=== PATIENT | female | born 1980 | race Caucasian/White ===

== ENCOUNTER 2017-04-17 18:40 | Emergency (ER) | payer OTHER ==
[2017-04-17 23:57] LABS: Hematocrit 41 % (35-47); Mean Corpuscular HGB Conc 34 g/dl (31-36); Mean Corpuscular Hemoglobin 30 pg (27-31); Mean Corpuscular Volume 87 fL (80-97); Mean Platelet Volume 8 um3 (7.4-10.4); Red Cell Distribution Width 12 % (10.5-15); White Blood Count 12.3 10^3/ul (3.5-10.8)
[2017-04-18 00:16] LABS: Albumin 3.9 g/dL (3.2-5.2); BUN/Creatinine Ratio 11.5 (8-20); Calcium 8.8 mg/dL (8.6-10.3); EGFR African American 107.5 (>60); EGFR Non-African American 83.6 (>60); Globulin 3.3 g/dL (2-4); Total Bilirubin 0.6 mg/dL (0.2-1.0); Total Protein 7.2 g/dL (6.4-8.9)
[2017-04-18] MEDS ORDERED: Morphine INJ* 4 MG/ML 1 ML SYRINGE IV ONE (00:19)
[2017-04-18] MEDS ORDERED: Ondansetron INJ* 2 MG/ML VIAL IV ONE (00:20)
[2017-04-18] MEDS ORDERED: NS 0.9% 1000 ML* 1,000 ML IV ONE (00:20)
[2017-04-18] MEDS ORDERED: Iohexol 300* (CONTRAST) 10 ML SDV IV ONE (01:03)
--- NOTE | 2017-04-18 03:21 | ED ---
Abdominal Pain/Female - HPI Summary HPI Summary: 36F presents with abdominal pain today. She has history of colitis. She sees a GI specialists who has her on antidepressants and she hasn't had a flare up for 2 years. She admits to nausea. denies any v/d/c, dysuria, hematuria, flank pain. has had gallbladder removed. states feels the same as colitis in past. not dx of crohns or UC. no one else sick. not taken anything for pain. did not eat anything different. she states most times she is hospitalized but feels that she caught it early this time. - History of Current Complaint Chief Complaint: EDAbdPain Stated Complaint: ABD PAIN Time Seen by Provider: 04/17/17 23:25 Pain Intensity: 6 Allergies/Adverse Reactions: Allergies Allergy/AdvReac Type Severity Reaction Status Date / Time Metronidazole [From Flagyl] Allergy Headache Verified 04/17/17 23:50 PMH/Surg Hx/FS Hx/Imm Hx Endocrine/Hematology History: Denies: Hx Diabetes Cardiovascular History: Denies: Hx Hypertension History: Denies: Hx Renal Disease - Surgical History Surgery Procedure, Year, and Place: CHOLECYSTECTOMY, APPENDECTOMY, 1 Infectious Disease History: No Infectious Disease History: Denies: Traveled Outside the [place] in Last 30 Days - Family History Known Family History: Positive: Hypertension - Social History Alcohol Use: Rare Substance Use Type: Reports: None Smoking Status (MU): Former Smoker Review of Systems Negative: Fever Negative: Chest Pain Negative: Shortness Of Breath Positive: Abdominal Pain, Nausea. Negative: Vomiting, Diarrhea All Other Systems Reviewed And Are Negative: Yes Physical Exam Triage Information Reviewed: Yes Vital Signs On Initial Exam: Initial Vitals Temp Pulse Resp BP Pulse Ox 99.2 F 87 20 129/83 100 04/17/17 18:50 04/17/17 18:50 04/17/17 18:50 04/17/17 18:50 04/17/17 18:50 Vital Signs Reviewed: Yes Appearance: Positive: Well-Appearing Skin: Positive: Warm, Dry Head/Face: Positive: Normal Head/Face Inspection Eyes: Positive: Normal, EOMI, [place], Conjunctiva Clear ENT: Positive: Normal ENT inspection, Pharynx normal, TMs normal Respiratory/Lung Sounds: Positive: Clear to Auscultation, Breath Sounds Present Cardiovascular: Positive: Normal, RRR Abdomen Description: Positive: Soft, Other: - tenderness in upper quadrants, no rebound Bowel Sounds: Positive: Present - [place] Coma Scale Coma Scale Total: 15 Diagnostics - Vital Signs Vital Signs Temp Pulse Resp BP Pulse Ox 04/18/17 01:09 98.2 F 71 17 123/67 100 04/18/17 00:29 16 04/17/17 22:44 98.1 F 83 16 132/80 99 04/17/17 21:00 98.8 F 81 16 119/65 99 04/17/17 18:50 99.2 F 87 20 129/83 100 - Laboratory Lab Results: Lab Results 04/17/17 04/17/17 Range/Units 23:45 23:45 WBC 12.3 H (3.5-10.8) 10^3/ul RBC 4.70 (4.0-5.4) 10^6/ul Hgb 14.0 (12.0-16.0) g/dl Hct 41 (35-47) % MCV 87 (80-97) fL MCH 30 (27-31) pg MCHC 34 (31-36) g/dl RDW 12 (10.5-15) % Plt Count 241 (150-450) 10^3/ul MPV 8 (7.4-10.4) um3 Neut % (Auto) 73.6 (38-83) % Lymph % (Auto) 15.3 L (25-47) % [place] % (Auto) 7.4 (1-9) % Eos % (Auto) 3.0 (0-6) % Baso % (Auto) 0.7 (0-2) % Absolute Neuts (auto) 9.1 H (1.5-7.7) 10^3/ul Absolute Lymphs (auto) 1.9 (1.0-4.8) 10^3/ul Absolute Monos (auto) 0.9 H (0-0.8) 10^3/ul Absolute Eos (auto) 0.4 (0-0.6) 10^3/ul Absolute Basos (auto) 0.1 (0-0.2) 10^3/ul Absolute Nucleated RBC 0.01 10^3/ul Nucleated RBC % 0.1 Sodium 136 (133-145) mmol/L Potassium 4.0 (3.5-5.0) mmol/L Chloride 102 (101-111) mmol/L Carbon Dioxide 28 (22-32) mmol/L Anion Gap 6 (2-11) mmol/L BUN 9 (6-24) mg/dL Creatinine 0.78 (0.51-0.95) mg/dL Est GFR ( Amer) 107.5 (>60) Est GFR (Non-Af Amer) 83.6 (>60) BUN/Creatinine Ratio 11.5 (8-20) Glucose 103 H (70-100) mg/dL Calcium 8.8 (8.6-10.3) mg/dL Total Bilirubin 0.60 (0.2-1.0) mg/dL AST 18 (13-39) U/L ALT 20 (7-52) U/L Alkaline Phosphatase 72 (34-104) U/L C-React Prot High Sens 27.09 mg/L Total Protein 7.2 (6.4-8.9) g/dL Albumin 3.9 (3.2-5.2) g/dL Globulin 3.3 (2-4) g/dL Albumin/Globulin Ratio 1.2 (1-3) Lipase 11 (11.0-82.0) U/L Result Diagrams: 04/17/17 23:45 04/17/17 23:45 Lab Statement: Any lab studies that have been ordered have been reviewed, and results considered in the medical decision making process. - CT abd CT Interpretation: Positive (See Comments) - mild abnromal wall thickening likely due to acute infctous ilitis with small amount of surround mesenteric edema CT Interpretation Completed By: Radiologist Abdominal Pain Fem Course/Dx - Course Course Of Treatment: 36F presents with abdominal pain today. She has history of colitis. She sees a GI specialists who has her on antidepressants and she hasn't had a flare up for 2 years. She admits to nausea. denies any v/d/c, dysuria, hematuria, flank pain. has had gallbladder removed. states feels the same as colitis in past. not dx of crohns or UC. no one else sick. not taken anything for pain. did not eat anything different. on exam tenderness in upper quadrants. labs wbc 12. feeling better after morphine. CT shows colitis. will treat with cipro. patient understands and agrees with plan. - Diagnoses Differential Diagnosis: Positive: Diverticulitis, Urinary Tract Infection, Other - colitis Provider Diagnoses: Colitis Discharge - Discharge Plan Condition: Good Disposition: HOME Prescriptions: Ciprofloxacin TAB* [Cipro 500 MG TAB*] 500 mg PO BID #27 tab Ondansetron ODT TAB* [Zofran 4 MG Odt TAB*] 4 mg PO Q6H PRN #20 tab.odt PRN Reason: Nausea oxyCODONE/Acetamin 5/325 MG* [Percocet 5/325 TAB*] 1 tab PO Q6H PRN #16 tab MDD 4 PRN Reason: Pain Patient Education Materials: Colitis (ED) Forms: *Work Release Referrals: Non Staff,Doctor [Primary Care Provider] - Carlo Dietz MD [Medical Doctor] - Additional Instructions: Take cipro twice a day for 14 days Take zofran every 6 hours for nausea Take ibuprofen or tyenlol every 6 hours for pain Follow up with GI Return to ED if develop any new or worsening symptoms
[2017-04-18] MEDS ORDERED: Ciprofloxacin TAB* 500 MG PO ONE (03:37)
[2017-04-18 04:16] VITALS: BP 118/64
--- NOTE | 2017-04-18 08:13 | RAD ---
CLINICAL HISTORY: Abdominal pain, epigastric pain COMPARISON: None TECHNIQUE: Multiple contiguous axial CT scans were obtained of the abdomen and pelvis after the administration of intravenous contrast. Coronal and sagittal multiplanar reformations are submitted for review. Oral contrast was administered. Delayed images were obtained through the abdomen and pelvis. FINDINGS: LUNG BASES: The lung bases are clear. LIVER: The liver is diffusely low in attenuation compared to the spleen. There are no focal hepatic parenchymal masses. The liver is at the upper limits of normal in size. BILE DUCTS: There is no intrahepatic or extrahepatic biliary dilatation. GALLBLADDER: The gallbladder is not visualized. Surgical clips are noted in the gallbladder fossa. PANCREAS: The pancreas is normal, without mass or ductal dilatation. SPLEEN: Normal in size and appearance. UPPER GI TRACT: Evaluation of the gastrointestinal tract is limited by incomplete gastric distention. The upper GI tract is unremarkable. SMALL BOWEL AND MESENTERY: There is mild stranding of the mesenteric fat in the right upper quadrant. There is fluid noted within the right lower quadrant lungs nondilated small bowel. There is mild mucosal thickening of these bowel loops COLON: The appendix is not clearly visualized. Surgical clips in the right lower quadrant. There are occasional diverticula of the colon. ADRENALS: Normal bilaterally. KIDNEYS: The kidneys are normal in shape, size, contour, and axis. There is no hydronephrosis or nephrolithiasis. BLADDER: The bladder is smooth in contour. PELVIC ORGANS: The uterus and adnexa are grossly normal for technique. A tampon is noted. AORTA: The aorta is normal. IVC: Unremarkable LYMPH NODES: There is no lymphadenopathy by size criteria. ABDOMINAL WALL: There is a small fat-containing abdominal hernia BONES AND SOFT TISSUES: Unremarkable OTHER: None IMPRESSION: 1. STATUS POST CHOLECYSTECTOMY AND APPENDECTOMY. 2. THERE IS MILD INFLAMMATORY CHANGE AND FLUID ALONG LOOPS OF SMALL BOWEL IN THE RIGHT LOWER QUADRANT WITH ASSOCIATED THICKENING OF THE SMALL BOWEL, SUGGESTIVE OF ENTERITIS, INCLUDING INFECTIOUS OR NONINFECTIOUS INFLAMMATORY ENTERITIS. 3. OCCASIONAL DIVERTICULA OF THE COLON. 4. NO OBSTRUCTION..
== END 2017-04-18 04:15 | disposition home or self-care (01) ==
LOC: ED 18:40
DX: K52.9 Noninfective gastroenteritis and colitis, unspecified (principal); R10.9 Unspecified abdominal pain; R11.0 Nausea; Z87.891 Personal history of nicotine dependence
CPT/HCPCS: 36415; 74177; 80053; 83690; 85025; 86141; 99283; A9270-GY; J2270; J2405; Q9967